=== PATIENT | male | born 1985 | race Caucasian/White ===

== ENCOUNTER 2018-06-10 10:38 | Emergency (ER) | payer OTHER ==
[~2018-06-10] VITALS: Ht 177.8 cm; Wt 71.8 kg
[2018-06-10 10:47] VITALS: BP 120/98
--- NOTE | 2018-06-10 10:56 | NUR ---
33/ M BIB SELF FOR MEDICATION REFILL OF WELBUTRIN AND ADDEROLL. PT STATES HE WAS TOLD TO COME TO ER OR URGENT CARE FOR MED REFILL FROM THE [facility]IS CENTER. PT AAOX4, GCS 15. AMBULATORY W/ STEADY GAIT. STATES THAT HE FEELS VERY ANXIOUS AT THIS TIME. HX HTN, LEFT EYE REMOVAL, DEPRESSION, ANXIETY RX LISINOPRIL, CARVEDILOL, TRAZADONE, WELBUTRIN, ADERAL. DENIES N/V/D; SKIN IS PINK/WARM/DRY.AAOX4. PATIENT STATES PAIN OF 0/10 AT THIS TIME. PATIENT POSITIONED FOR COMFORT; HOB ELEVATED; BEDRAILS UP X2; BED DOWN. ER MD MADE AWARE OF PT STATUS.
--- NOTE | 2018-06-10 10:56 | NUR ---
Note [email or web address] in EDM - 06/10/18 at 1057 by [email or web address] 33 YO M BIB SELF FOR MEDICATION REFILL OF WELBUTRIN AND ADDEROLL. PT STATES HE WAS TOLD TO COME TO ER OR URGENT CARE FOR MED REFILL FROM THE CRISIS CENTER. PT AAOX4, GCS 15. AMBULATORY W/ STEADY GAIT. STATES THAT HE FEELS VERY ANXIOUS AT THIS TIME. HX HTN, LEFT EYE REMOVAL, DEPRESSION, ANXIETY RX LISINOPRIL, CARVEDILOL, TRAZADONE, WELBUTRIN, ADERAL
[2018-06-10 12:28] VITALS: BP 120/98
--- NOTE | 2018-06-10 12:28 | NUR ---
Patient given written and verbal discharge instructions and verbalizes understanding. Given copies of tests performed during visit. Patient is awake, alert and oriented. Ambulatory with steady gait. Refuses offer of senior living placement. Given list of available shelters in surrounding areas. PT REFUSED TO [facility]. DC BY DR FRAUSTO.
== END 2018-06-10 12:28 | disposition home or self-care (01) ==
LOC: MED 10:38
DX: F41.9 Anxiety disorder, unspecified (principal); F32.9 Major depressive disorder, single episode, unspecified; I10 Essential (primary) hypertension; Z76.0 Encounter for issue of repeat prescription; Z88.0 Allergy status to penicillin; Z88.2 Allergy status to sulfonamides
CPT/HCPCS: 99283

== ENCOUNTER 2021-02-06 20:06 | Emergency (ER) | payer OTHER ==
[~2021-02-06] VITALS: Ht 175.3 cm; Wt 72.6 kg
[2021-02-06] MEDS ORDERED: NACL 0.9% 1,000 ML IV ONE (20:15)
[2021-02-06 20:20] VITALS: BP 116/79
--- NOTE | 2021-02-06 20:29 | NUR ---
AFRTUN RODRIGUEZ. TAKEN TO BED 1
--- NOTE | 2021-02-06 20:30 | NUR ---
SEE COMPLETE ASSESSMENT. PT ATTACHED TO CARDIAC MONITORING. ALL NEEDS MET AT THIS TIME.
--- NOTE | 2021-02-06 20:35 | NUR ---
BLOOD DRAWN VIA IV START. LABS GIVEN TO CHITO MENJIVAR TECH.
[2021-02-06 21:01] LABS: BASOPHILS # (AUTO) 0.1 K/uL (0.00-0.22); BASOPHILS % (AUTO) 0.8 % (0.0-2.0); EOSINOPHILS # (AUTO) 0.2 K/uL (0-0.4); EOSINOPHILS % (AUTO) 2.1 % (0.0-4.0); HEMOGLOBIN 11.9 g/dL (12.0-18.0); LYMPHOCYTES # (AUTO) 3.2 K/uL (2.0-11.5); MEAN CORPUSCULAR HEMOGLOBIN 28 pg (27-31); MEAN CORPUSCULAR HGB CONC 33 g/dL (33-37); MEAN CORPUSCULAR VOLUME 84.9 fL (80-94); MONOCYTES # (AUTO) 0.6 K/uL (0.8-1.0); MONOCYTES % (AUTO) 7.6 % (1.7-9.3); NEUTROPHILS # (AUTO) 4.4 K/uL (1.8-7.7); NEUTROPHILS % (AUTO) 51.5 % (42.2-75.2); PLATELET COUNT (AUTO) 311 K/uL (140-450); RED BLOOD CELL COUNT(AUTO) 4.24 MIL/uL (4.20-6.10); RED CELL DISTRIBUTION WIDTH 14.9 % (11.6-13.7); WHITE BLOOD COUNT (AUTO) 8.5 K/uL (4.8-10.8)
[2021-02-06 21:18] LABS: ANION GAP 14.8 (8-16); CARBON DIOXIDE 24.8 mmol/L (21-32); POTASSIUM 3.6 mmol/L (3.5-5.1)
[2021-02-06 21:52] VITALS: BP 116/79
--- NOTE | 2021-02-06 22:00 | NUR ---
PT REPORTS "FEELING A LITTLE BETTER" S/P IVF. WILL CONTINUE TO MONITOR.
--- NOTE | 2021-02-06 22:30 | NUR ---
PT AMBULATORY TO RESTROOM UNASSISTED.
--- NOTE | 2021-02-06 22:41 | NUR ---
Patient discharged with v/s stable. Written and verbal after care instructions given and explained. Patient verbalized understanding. Ambulatory with steady gait. All questions addressed prior to discharge. Advised to follow up with PMD.
--- NOTE | 2021-02-06 22:42 | NUR ---
CALLED [facility] WHO STATED SHE WOULD PROVIDE TRANSPORTATION TO RETURN TO FACILITY.
== END 2021-02-06 22:41 | disposition home or self-care (01) ==
LOC: MED 20:06
DX: R55 Syncope and collapse (principal); T50.905A Adverse effect of unspecified drugs, medicaments and biological substances, initial encounter; I95.1 Orthostatic hypotension; Z88.0 Allergy status to penicillin; Z88.2 Allergy status to sulfonamides; Y92.89 Other specified places as the place of occurrence of the external cause
CPT/HCPCS: 36415; 80048; 84484; 85025; 93005; 96360; 99284; J7030